=== PATIENT | female | born 1980 | race Caucasian/White ===

== ENCOUNTER 2023-03-15 10:23 | Emergency (ER) | payer MEDICAID ==
[~2023-03-15] VITALS: Ht 162 cm; Wt 60.0 kg
[2023-03-15 11:09] LABS: BASOPHILS # (AUTO) 0.1 10^3/uL (0.0-0.1); BASOPHILS % (AUTO) 1 % (0-10); EOSINOPHILS # (AUTO) 0.1 10^3/uL (0.0-0.3); EOSINOPHILS % (AUTO) 1 % (0-10); HEMATOCRIT 45 % (35-52); HEMOGLOBIN 15.7 g/dL (11.5-16.0); LYMPHOCYTES # (AUTO) 2.8 10^3/uL (1.0-4.0); LYMPHOCYTES % (AUTO) 29 % (12-44); MEAN CORPUSCULAR HEMOGLOBIN 34 pg (25-34); MEAN CORPUSCULAR HGB CONC 35 g/dL (32-36); MEAN CORPUSCULAR VOLUME 97 fL (80-99); MEAN PLATELET VOLUME 11.3 fL (9.0-12.2); MONOCYTES # (AUTO) 0.6 10^3/uL (0.0-1.0); MONOCYTES % (AUTO) 6 % (0-12); NEUTROPHILS # (AUTO) 6.1 10^3/uL (1.8-7.8); NEUTROPHILS % (AUTO) 63 % (42-75); PLATELET COUNT 240 10^3/uL (130-400); WHITE BLOOD COUNT 9.8 10^3/uL (4.3-11.0)
[2023-03-15 11:14] LABS: PROTHROMBIN TIME PATIENT 13.4 SEC (12.2-14.7)
[2023-03-15 11:15] LABS: ALBUMIN 3.7 GM/DL (3.2-4.5); CHLORIDE 112 MMOL/L (98-107); POTASSIUM 3.9 MMOL/L (3.6-5.0); SODIUM 141 MMOL/L (135-145)
[2023-03-15 11:16] LABS: CALCIUM 8.5 MG/DL (8.5-10.1)
[2023-03-15 11:17] LABS: GLUCOSE 97 MG/DL (70-105); TOTAL PROTEIN 6.3 GM/DL (6.4-8.2)
--- NOTE | 2023-03-15 11:18 | Diagnostic Imaging Report ---
EXAMINATION: Chest 1 view HISTORY: Chest pain COMPARISON: None available. FINDINGS: Heart size and pulmonary vasculature are normal. The lungs are clear without consolidation, pleural effusion, or pneumothorax. The osseous structures are intact. IMPRESSION: 1. No acute radiographic abnormality in the chest. Dictated by: Dictated on workstation # [id number]
[2023-03-15 11:19] LABS: BILIRUBIN,TOTAL 0.2 MG/DL (0.1-1.0); CARBON DIOXIDE 20 MMOL/L (21-32)
[2023-03-15 11:21] LABS: ALKALINE PHOSPHATASE 71 U/L (40-136); CREATININE SERUM 0.79 MG/DL (0.60-1.30); GFR ESTIMATED 97
[2023-03-15 11:22] LABS: BUN/CREATININE RATIO 8
[2023-03-15 11:24] LABS: ALANINE AMINOTRANSFERASE 29 U/L (0-55); MAGNESIUM 1.6 MG/DL (1.6-2.4)
[2023-03-15 11:25] LABS: LIPASE 49 U/L (8-78)
[2023-03-15] MEDS ORDERED: FAMOTIDINE 20 MG (PEPCID) TABLET PO STA (11:42)
--- NOTE | 2023-03-15 11:42 | ED Chest Pain ---
General Chief Complaint: Chest Pain Stated Complaint: SOB | LIGHTHEADED Nursing Triage Note: ARRIVED VIA AMB TO ROOM 06 WITH COMPLAINTS OF CHEST/HEAD PAIN THAT STARTED AT APPX 0910 THIS AM WHILE S/O WAS HAVING TESTS DONE. Source: patient, family Exam Limitations: no limitations History of Present Illness Date Seen by Provider: Mar 15, 2023 Time Seen by Provider: 10:24 Initial Comments 42-year-old female with no pertinent past medical history coming in due to chest pain. She got in a dispute with her significant other, began having epigastric discomfort afterwards. Has never really had pain like this before. It was more sharp to her. Also not uncommon for her to get headaches since she developed 1 earlier. Denies any prior history of DVT or PE, no lower extremity swelling or pain, no hemoptysis, no recent surgery, no cardiac history. Pain has improved since being here. Allergies and Home Medications Allergies Coded Allergies: prochlorperazine (Verified Allergy, Unknown, 03/15/23) promethazine (Verified Allergy, Unknown, 03/15/23) Patient Home Medication List Home Medication List Reviewed: Yes Review of Systems Review of Systems Constitutional: No fever EENTM: No Symptoms Reported Respiratory: No Symptoms Reported Cardiovascular: See HPI Gastrointestinal: No Symptoms Reported Genitourinary: No Symptoms Reported Musculoskeletal: no symptoms reported Skin: no symptoms reported Psychiatric/Neurological: See HPI Past Uzgcfkn-Lipdey-Ntkfsp Hx Patient Social History Tobacco Use?: Yes Substance use?: Yes Substance type: Marijuana Alcohol Use?: Yes Physical Exam Vital Signs Vital Signs - First Documented 03/15/23 10:25 Temp 35.8 Pulse 88 Resp 16 B/P (MAP) 140/110 (120) Pulse Ox 100 O2 Delivery Room Air Capillary Refill : Less Than 3 Seconds Height, Weight, BMI Height: '" Weight: lbs. oz. kg; 22.00 BMI Method: General Appearance: No Apparent Distress, WD/WN HEENT: PERRL/EOMI, Normal ENT Inspection, Pharynx Normal Neck: Full Range of Motion, Normal Inspection, Non Tender, Supple Respiratory: Chest Non Tender, Lungs Clear, Normal Breath Sounds, No Accessory Muscle Use, No Respiratory Distress Cardiovascular: Regular Rate, Rhythm, No Edema, Normal Peripheral Pulses Gastrointestinal: Normal Bowel Sounds, Non Tender, Soft; No Distended, No Guarding Extremity: Normal Capillary Refill, Normal Inspection, Normal Range of Motion, Non Tender, No Calf Tenderness, No Pedal Edema Neurologic/Psychiatric: Alert, No Motor/Sensory Deficits, Normal Mood/Affect Skin: Normal Color, Warm/Dry Progress/Results/Core Measures Results/Orders Lab Results Laboratory Tests Test 03/15/23 10:55 Range/Units White Blood Count 9.8 4.3-11.0 10^3/uL Red Blood Count 4.64 3.80-5.11 10^6/uL Hemoglobin 15.7 11.5-16.0 g/dL Hematocrit 45 35-52 % Mean Corpuscular Volume 97 80-99 fL Mean Corpuscular Hemoglobin 34 25-34 pg Mean Corpuscular Hemoglobin Concent 35 32-36 g/dL Red Cell Distribution Width 14.3 10.0-14.5 % Platelet Count 240 130-400 10^3/uL Mean Platelet Volume 11.3 9.0-12.2 fL Immature Granulocyte % (Auto) 0 % Neutrophils (%) (Auto) 63 42-75 % Lymphocytes (%) (Auto) 29 12-44 % Monocytes (%) (Auto) 6 0-12 % Eosinophils (%) (Auto) 1 0-10 % Basophils (%) (Auto) 1 0-10 % Neutrophils # (Auto) 6.1 1.8-7.8 10^3/uL Lymphocytes # (Auto) 2.8 1.0-4.0 10^3/uL Monocytes # (Auto) 0.6 0.0-1.0 10^3/uL Eosinophils # (Auto) 0.1 0.0-0.3 10^3/uL Basophils # (Auto) 0.1 0.0-0.1 10^3/uL Immature Granulocyte # (Auto) 0.0 0.0-0.1 10^3/uL Prothrombin Time 13.4 12.2-14.7 SEC INR Comment 1.0 0.8-1.4 Activated Partial Thromboplast Time 30 24-35 SEC Sodium Level 141 135-145 MMOL/L Potassium Level 3.9 3.6-5.0 MMOL/L Chloride Level 112 H 98-107 MMOL/L Carbon Dioxide Level 20 L 21-32 MMOL/L Anion Gap 9 5-14 MMOL/L Blood Urea Nitrogen 6 L 7-18 MG/DL Creatinine 0.79 0.60-1.30 MG/DL Estimat Glomerular Filtration Rate 97 BUN/Creatinine Ratio 8 Glucose Level 97 70-105 MG/DL Calcium Level 8.5 8.5-10.1 MG/DL Corrected Calcium 8.7 8.5-10.1 MG/DL Magnesium Level 1.6 1.6-2.4 MG/DL Total Bilirubin 0.2 0.1-1.0 MG/DL Aspartate Amino Transf (AST/SGOT) 28 5-34 U/L Alanine Aminotransferase (ALT/SGPT) 29 0-55 U/L Alkaline Phosphatase 71 40-136 U/L Troponin I < 0.028 <0.028 NG/ML B-Type Natriuretic Peptide < 10.0 <100.0 PG/ML Total Protein 6.3 L 6.4-8.2 GM/DL Albumin 3.7 3.2-4.5 GM/DL Lipase 49 8-78 U/L My Orders Orders - ANKIT PABLO MD Ekg Tracing (03/15/23 10:34) Cbc With Automated Diff (03/15/23 10:45) Magnesium (03/15/23 10:45) Chest 1 View, Ap/Pa Only (03/15/23 10:45) Ekg Tracing (03/15/23 10:45) Comprehensive Metabolic Panel (03/15/23 10:45) Protime With Inr (03/15/23 10:45) Partial Thromboplastin Time (03/15/23 10:45) O2 (03/15/23 10:45) Monitor-Rhythm Ecg Trace Only (03/15/23 10:45) Ed Iv/Invasive Line Start (03/15/23 10:45) Lipase (03/15/23 10:45) Bnp Geovanna (03/15/23 10:45) Troponin I Geovanna (03/15/23 10:45) Lidocaine 2% Viscous 15 Ml (Xylocaine Vi (03/15/23 11:45) Famotidine Tablet (Pepcid Tablet) (03/15/23 11:42) Antacid Suspension (Mylanta Suspension (03/15/23 11:45) Aspirin Chewable Tablet (Baby Aspirin Ch (03/15/23 11:45) Droperidol Inj (Ed Only) (Inapsine Inj ( (03/15/23 11:45) Medications Given in ED Current Medications Medications Dose Ordered Sig/Jolie Route Start Time Stop Time Status Last Admin Dose Admin Al Hydrox/Mg Hydrox/Simethicone 30 ml ONCE ONCE PO 03/15/23 11:45 03/15/23 11:46 DC 03/15/23 12:03 30 ML Aspirin 324 mg ONCE ONCE PO 03/15/23 11:45 03/15/23 11:46 DC 03/15/23 12:03 324 MG Droperidol 1.25 mg ONCE ONCE IV 03/15/23 11:45 03/15/23 11:46 DC 03/15/23 12:04 1.25 MG Lidocaine HCl 15 ml ONCE ONCE PO 03/15/23 11:45 03/15/23 11:46 DC 03/15/23 12:03 15 ML Vital Signs/I&O 03/15/23 10:25 Temp 35.8 Pulse 88 Resp 16 B/P (MAP) 140/110 (120) Pulse Ox 100 O2 Delivery Room Air Blood Pressure Mean: 120 Progress Progress Note : Progress Note 42-year-old female coming in due to chest pain after a dispute with her significant other. ABCs were intact, although stable on presentation. Physical exam reassuring with no acute abnormalities. EKG showing no acute ischemic changes on my interpretation. Chest x-ray ordered and interpreted by me showing no pneumothorax, normal cardiac silhouette, no obvious abnormalities. An IV was placed and basic labs were obtained and were significant for negative troponin, normal white blood cell count, normal creatinine, normal BNP. Symptoms not really consistent with ACS, and relatively lower in terms of risk factors with her age and past medical history. She is low risk for PE per [place] criteria and is PERC negative. She was given a GI cocktail as well as aspirin and for her headache she received droperidol since she is allergic to Compazine and Phenergan. On reassessment she was looking better and feels better. I believe she stable for discharge with outpatient follow-up with cardiology. She was sent home with strict return precautions. Initial ECG Impression Date: Mar 15, 2023 Initial ECG Impression Time: 10:37 Initial ECG Rate: 89 Initial ECG Rhythm: Normal Sinus Comment Narrow QRS, normal axis, no significant ST changes or T wave abnormalities Diagnostic Imaging Diagonstic Imaging: Xray (chest) Comments [facility] [place], [place] NAME: G[facility] KID[facility] REC#: [id number] PT STATUS: REG ER : 02/17/1975 PHYSICIAN: ANKIT PABLO MD ADMIT DATE: 03/15/23/ER Draft Date of Exam:03/15/23 CHEST 1 VIEW, AP/PA ONLY EXAMINATION: Chest 1 view HISTORY: syncope COMPARISON: None available. FINDINGS: Heart size and pulmonary vasculature are normal. The lungs are clear without consolidation, pleural effusion, or pneumothorax. The osseous structures are intact. Left-sided portacatheter is present. IMPRESSION: 1. No acute radiographic abnormality in the chest. Dictated on workstation # [id number] Dict: 03/15/23 1116 Trans: 03/15/23 1118 [facility] [id number] Interpreted by: ANTOINETTE EVANS DO Electronically signed by: Departure Impression Primary Impression: Chest pain Qualified Codes: R07.82 - Intercostal pain Disposition: 01 HOME, SELF-CARE Condition: Improved Departure-Patient Inst. Decision time for Depature: 12:35 Referrals: ДМИТРИЙ WILDER MD NO,LOCAL PHYSICIAN (PCP) Primary Care Physician Patient Instructions: Chest Pain (DC) Add. Discharge Instructions: We do not see any evidence of anything life-threatening at this time as cause of your chest pain. We do recommend following up with Dr. Wilder who is the collar worker. His number is in this paperwork. Work/School Note: Work Release Form Date Seen in the Emergency Department: Mar 15, 2023 Return to Work: Mar 16, 2023 Restrictions: No Restrictions ANKIT PABLO MD Mar 15, 2023 11:42
[2023-03-15] MEDS ORDERED: DROPERIDOL 5 MG/2 ML (INAPSINE) ED ONLY! IV ONE (11:45)
[2023-03-15] MEDS ORDERED: ANTACID SUSP 30 ML UDC (MYLANTA) PO ONE (11:45)
[2023-03-15] MEDS ORDERED: LIDOCAINE 2% VISCOUS 15 ML UDC PO ONE (11:45)
[2023-03-15] MEDS ORDERED: ASPIRIN 81 MG CHEW (CHILDREN'S ASA) PO ONE (11:45)
[2023-03-15 12:48] VITALS: BP 119/88
== END 2023-03-15 12:40 | disposition home or self-care (01) ==
LOC: ER 10:26
DX: R07.9 Chest pain, unspecified (principal)
CPT/HCPCS: 36415; 71045; 80053; 83690; 83735; 83880; 84484; 85025; 85610; 85730; 93005; 93041

== ENCOUNTER 2023-07-07 06:26 | Emergency (ER) | payer MEDICAID ==
[~2023-07-07] VITALS: Ht 162.6 cm; Wt 56.0 kg
[2023-07-07] MEDS ORDERED: fentaNYL INJECTION 100 MCG/2 ML VIAL IVP STA (06:38)
--- NOTE | 2023-07-07 06:43 | ED Abdominal Pain ---
General Stated Complaint: ABD PAIN Source of Information: Patient Exam Limitations: No Limitations History of Present Illness Date Seen by Provider: Jul 07, 2023 Time Seen by Provider: 06:30 Initial Comments 42-year-old female presents to the emergency department today for upper abdominal pain. Symptoms started at about 5:00 this morning and woke her from sleep. She has had pain like this with pancreatitis previously. She is a heavy drinker. When asked how much she drinks she states "too much." She does not really quantify it any further. She also uses illicit drugs regularly stating "what ever is on the table." She denies any fevers chills nausea or vomiting. Pain is described as constant, sharp stabbing in her bilateral upper abdomen without radiation. No aggravating or alleviating factors. She believes she might have a urinary tract infection because her urine is dark. She denies dysuria or hematuria. She is currently on her menstrual cycle and denies any vaginal symptoms. She has no changes in her bowels. She has had a tubal ligation but no other intra-abdominal surgeries. All other systems reviewed and negative except documented per HPI. Voice recognition software was used to help create this chart Allergies and Home Medications Allergies Coded Allergies: prochlorperazine (Verified Allergy, Unknown, 03/15/23) promethazine (Verified Allergy, Unknown, 03/15/23) Patient Home Medication List Home Medication List Reviewed: Yes Review of Systems Review of Systems Constitutional: see HPI Past Imzgqkw-Rtmzxv-Lzmyvs Hx Patient Social History Tobacco Use?: Yes Use of E-Cig and/or Vaping dev: No Substance use?: Yes Alcohol Use?: Yes Physical Exam Vital Signs Vital Signs - First Documented 07/07/23 06:43 Temp 36.5 Pulse 100 Resp 18 B/P (MAP) 143/112 (122) Capillary Refill : Height/Weight/BMI Height: '" Weight: lbs. oz. kg; 22.00 BMI Method: General Appearance: WD/WN, moderate distress (Appears to be in pain) HEENT: normal ENT inspection, pharynx normal Neck: non-tender, supple, normal inspection Respiratory: chest non-tender, lungs clear, normal breath sounds, no respiratory distress, no accessory muscle use Cardiovascular: regular rate, rhythm, no murmur Gastrointestinal: normal bowel sounds, soft, no organomegaly, tenderness (Diffuse tenderness to the bilateral upper abdomen with voluntary guarding. No rebound tenderness. No mass organomegaly. No skin changes.) Extremities: non-tender, normal inspection, normal capillary refill Neurologic/Psychiatric: alert, oriented x 3 Skin: normal color, warm/dry Progress/Results/Core Measures Results/Orders Lab Results Laboratory Tests Test 07/07/23 06:40 07/07/23 06:50 Range/Units White Blood Count 9.6 4.3-11.0 10^3/uL Red Blood Count 4.98 3.80-5.11 10^6/uL Hemoglobin 17.0 H 11.5-16.0 g/dL Hematocrit 48 35-52 % Mean Corpuscular Volume 96 80-99 fL Mean Corpuscular Hemoglobin 34 25-34 pg Mean Corpuscular Hemoglobin Concent 35 32-36 g/dL Red Cell Distribution Width 13.3 10.0-14.5 % Platelet Count 235 130-400 10^3/uL Mean Platelet Volume 10.3 9.0-12.2 fL Immature Granulocyte % (Auto) 0 % Neutrophils (%) (Auto) 69 42-75 % Lymphocytes (%) (Auto) 23 12-44 % Monocytes (%) (Auto) 6 0-12 % Eosinophils (%) (Auto) 1 0-10 % Basophils (%) (Auto) 1 0-10 % Neutrophils # (Auto) 6.7 1.8-7.8 10^3/uL Lymphocytes # (Auto) 2.2 1.0-4.0 10^3/uL Monocytes # (Auto) 0.5 0.0-1.0 10^3/uL Eosinophils # (Auto) 0.1 0.0-0.3 10^3/uL Basophils # (Auto) 0.1 0.0-0.1 10^3/uL Immature Granulocyte # (Auto) 0.0 0.0-0.1 10^3/uL Sodium Level 141 135-145 MMOL/L Potassium Level 3.3 L 3.6-5.0 MMOL/L Chloride Level 102 98-107 MMOL/L Carbon Dioxide Level 21 21-32 MMOL/L Anion Gap 18 H 5-14 MMOL/L Blood Urea Nitrogen 6 L 7-18 MG/DL Creatinine 0.79 0.60-1.30 MG/DL Estimat Glomerular Filtration Rate 97 BUN/Creatinine Ratio 8 Glucose Level 104 70-105 MG/DL Calcium Level 9.0 8.5-10.1 MG/DL Corrected Calcium 8.7 8.5-10.1 MG/DL Total Bilirubin 0.6 0.1-1.0 MG/DL Aspartate Amino Transf (AST/SGOT) 32 5-34 U/L Alanine Aminotransferase (ALT/SGPT) 21 0-55 U/L Alkaline Phosphatase 116 40-136 U/L Total Protein 7.9 6.4-8.2 GM/DL Albumin 4.4 3.2-4.5 GM/DL Lipase 47 8-78 U/L Urine Color ORANGE Urine Clarity CLOUDY Urine pH 6.0 5-9 Urine Specific [place] 1.020 1.016-1.022 Urine Protein 2+ H NEGATIVE Urine Glucose (UA) NEGATIVE NEGATIVE Urine Ketones 1+ H NEGATIVE Urine Nitrite NEGATIVE NEGATIVE Urine Bilirubin 1+ H NEGATIVE Urine Urobilinogen 1.0 < = 1.0 MG/DL Urine Leukocyte Esterase NEGATIVE NEGATIVE Urine RBC (Auto) 3+ H NEGATIVE Urine RBC 2-5 H /HPF Urine WBC 5-10 H /HPF Urine Squamous Epithelial Cells 5-10 /HPF Urine Crystals PRESENT H /LPF Urine Amorphous Sediment LARGE TARIK URATES H /LPF Urine Bacteria MODERATE H /HPF Urine Casts NONE /LPF Urine Mucus NEGATIVE /LPF Urine Culture Indicated YES My Orders Orders - DON NORMAN DO Comprehensive Metabolic Panel (07/07/23 06:38) Cbc And Automated Diff (07/07/23 06:38) Lipase (07/07/23 06:38) Ua Culture If Indicated (07/07/23 06:38) Urine Bedside (07/07/23 06:38) Ct Abdomen/Pelvis W (07/07/23 06:38) Ns Iv 1000 Ml (Ns Iv 1000 Ml) (07/07/23 06:45) Ketorolac Injection (Ketorolac Injection (07/07/23 06:45) Fentanyl Injection (Fentanyl Injection (07/07/23 06:38) Urine Culture (07/07/23 06:50) Iohexol Injection (Omnipaque 350 Mg/Ml 1 (07/07/23 07:30) Received Contrast (Hold Metformin- Contr (07/07/23 07:30) Ns (Ivpb) 100 Ml (Sodium Chloride 0.9% 1 (07/07/23 07:30) Medications Given in ED Current Medications Medications Dose Ordered Sig/Jolie Route Start Time Stop Time Status Last Admin Dose Admin Iohexol 100 ml ONCE ONCE IV 07/07/23 07:30 07/07/23 07:31 UNV 07/07/23 07:22 65 ML Ketorolac Tromethamine 15 mg ONCE ONCE IVP 07/07/23 06:45 07/07/23 06:46 DC 07/07/23 06:46 15 MG Sodium Chloride 100 ml ONCE ONCE IV 07/07/23 07:30 07/07/23 07:31 UNV 07/07/23 07:23 80 ML Vital Signs/I&O 07/07/23 06:43 Temp 36.5 Pulse 100 Resp 18 B/P (MAP) 143/112 (122) Departure Communication (Admissions) Patient is hemodynamically stable with a nonsurgical abdominal exam. She has significant tenderness palpation in her epigastric region and she has had in the past with chronic pancreatitis. There is no evidence for acute pancreatitis. CT scan is limited by motion artifact, but there is no obvious evidence for acute intra-abdominal pathology. I have independently reviewed the images. Labs are reassuring, lipase is normal normal bicarb. She is given IV fluids, IV Toradol and fentanyl and her symptoms have improved. She be discharged with p.o. Toradol and otherwise stable condition. Impression Primary Impression: Epigastric abdominal pain Disposition: HOME, SELF-CARE Condition: Stable Departure-Patient Inst. Referrals: NO,LOCAL PHYSICIAN (PCP/Family) Primary Care Physician Patient Instructions: Abdominal Pain, Adult ED Add. Discharge Instructions: No emergent medical conditions are identified for your symptoms today. This may be from your pancreas, chronic pancreatitis however there is no evidence for acute pancreatitis at this time. Take the Toradol as prescribed as needed. Increase your fluids at home. Refrain from drinking alcohol. Return to the emergency department for any severe concerns. Follow-up with your primary doctor for any nonemergent needs. Scripts Ketorolac Tromethamine (Ketorolac Tromethamine) 10 Mg Tablet 10 MG PO TID for Pain for 3 Days, #9 TAB Prov: DON ONRMAN DO 07/07/23 DON NORMAN DO Jul 07, 2023 06:43
[2023-07-07] MEDS ORDERED: KETOROLAC INJ 15 MG/ML VIAL IVP ONE (06:45)
[2023-07-07] MEDS ORDERED: NS IV 1000 ML 1,000 ML IV SCH (06:45)
[2023-07-07 06:46] LABS: BASOPHILS # (AUTO) 0.1 10^3/uL (0.0-0.1); BASOPHILS % (AUTO) 1 % (0-10); EOSINOPHILS # (AUTO) 0.1 10^3/uL (0.0-0.3); EOSINOPHILS % (AUTO) 1 % (0-10); HEMATOCRIT 48 % (35-52); LYMPHOCYTES # (AUTO) 2.2 10^3/uL (1.0-4.0); LYMPHOCYTES % (AUTO) 23 % (12-44); MEAN CORPUSCULAR HEMOGLOBIN 34 pg (25-34); MEAN CORPUSCULAR HGB CONC 35 g/dL (32-36); MEAN CORPUSCULAR VOLUME 96 fL (80-99); MEAN PLATELET VOLUME 10.3 fL (9.0-12.2); MONOCYTES # (AUTO) 0.5 10^3/uL (0.0-1.0); MONOCYTES % (AUTO) 6 % (0-12); NEUTROPHILS # (AUTO) 6.7 10^3/uL (1.8-7.8); NEUTROPHILS % (AUTO) 69 % (42-75); PLATELET COUNT 235 10^3/uL (130-400); WHITE BLOOD COUNT 9.6 10^3/uL (4.3-11.0)
[2023-07-07 06:54] LABS: ALBUMIN 4.4 GM/DL (3.2-4.5); POTASSIUM 3.3 MMOL/L (3.6-5.0)
[2023-07-07 06:56] LABS: TOTAL PROTEIN 7.9 GM/DL (6.4-8.2)
[2023-07-07 06:58] LABS: BILIRUBIN,TOTAL 0.6 MG/DL (0.1-1.0)
[2023-07-07 07:00] LABS: CREATININE SERUM 0.79 MG/DL (0.60-1.30)
[2023-07-07 07:05] LABS: BACTERIA,URINE MODERATE /HPF; BILIRUBIN,URINE 1+ (NEGATIVE); CLARITY,URINE CLOUDY; COLOR,URINE ORANGE; GLUCOSE, URINE (UA) NEGATIVE (NEGATIVE); KETONES,URINE 1+ (NEGATIVE); LEUKOCYTE ESTERASE ,URINE NEGATIVE (NEGATIVE); NITRITE,URINE NEGATIVE (NEGATIVE); PROTEIN,URINE 2+ (NEGATIVE)
[2023-07-07 07:06] LABS: AMORPHOUS SEDIMENT,UR LARGE AMOR URATES /LPF
[2023-07-07] MEDS ORDERED: KETO10TA PO (07:26)
[2023-07-07] MEDS ORDERED: HOLD METFORMIN - RECEIVED CONTRAST 20 ML VIAL IV SCH (07:30)
[2023-07-07] MEDS ORDERED: IOHEXOL 350 MG/ML 100 ML (OMNIPAQUE 350) VIAL IV ONE (07:30)
[2023-07-07] MEDS ORDERED: NS 100 ML (IVPB) BAG IV ONE (07:30)
--- NOTE | 2023-07-07 07:48 | Diagnostic Imaging Report ---
PROCEDURE: CT abdomen and pelvis with contrast. TECHNIQUE: Multiple contiguous axial images were obtained through the abdomen and pelvis after administration of intravenous contrast. Auto Exposure Controls were utilized during the CT exam to meet ALARA standards for radiation dose reduction. All CT scans use one or more of the following dose optimizing techniques: automated exposure control, MA and/or KvP adjustment based on patient size and exam type or iterative reconstruction. INDICATION: Upper abdominal pain. I have no priors. FINDINGS: Liver density is in keeping with a fatty infiltration and there is mild hepatomegaly. No radiodense gallstone. No bile duct dilatation. The spleen, adrenals and pancreas unremarkable. The kidneys are unobstructed, nonfocal and nonacute. There is no ileus or bowel obstruction. No pneumatosis or free gas. No perienteric or pericolonic edema or stranding. The air-containing normal appendix is visible. There are a few noninflamed diverticula of the sigmoid colon. There is a right adnexal cyst presumed ovarian 2.4 cm likely the dominant follicle. The uterus unremarkable. Urinary bladder was nearly empty, grossly unremarkable. No free fluid. No fluid collection. No free air. IMPRESSION: Mild fatty hepatomegaly and likely physiologic right ovarian cyst. No acute-appearing abnormality. Dictated by: Dictated on workstation # [id number]
[2023-07-07 07:57] VITALS: BP 145/94
== END 2023-07-07 07:57 | disposition home or self-care (01) ==
LOC: EDUNIT# 06:26 → ER 06:28
DX: R10.13 Epigastric pain (principal); Z87.19 Personal history of other diseases of the digestive system
CPT/HCPCS: 36415; 74177; 80053; 81000; 83690; 84703; 85025; 87088

== ENCOUNTER 2023-07-09 14:39 | Emergency (ER) | payer MEDICAID ==
[~2023-07-09 14:39] MED LIST: KETO10TA PO
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
[2023-07-09] MEDS ORDERED: ONDANSETRON INJECTION 4 MG/2 ML (SDV) IVP ONE (15:00)
[2023-07-09] MEDS ORDERED: fentaNYL INJECTION 100 MCG/2 ML VIAL IVP ONE (15:00)
[2023-07-09 15:07] LABS: BASOPHILS # (AUTO) 0.1 10^3/uL (0.0-0.1); BASOPHILS % (AUTO) 1 % (0-10); EOSINOPHILS # (AUTO) 0.2 10^3/uL (0.0-0.3); EOSINOPHILS % (AUTO) 3 % (0-10); HEMATOCRIT 46 % (35-52); LYMPHOCYTES # (AUTO) 2.5 10^3/uL (1.0-4.0); LYMPHOCYTES % (AUTO) 37 % (12-44); MEAN CORPUSCULAR HEMOGLOBIN 34 pg (25-34); MEAN CORPUSCULAR HGB CONC 35 g/dL (32-36); MEAN CORPUSCULAR VOLUME 96 fL (80-99); MEAN PLATELET VOLUME 10.8 fL (9.0-12.2); MONOCYTES # (AUTO) 0.5 10^3/uL (0.0-1.0); MONOCYTES % (AUTO) 8 % (0-12); NEUTROPHILS # (AUTO) 3.3 10^3/uL (1.8-7.8); NEUTROPHILS % (AUTO) 50 % (42-75); PLATELET COUNT 200 10^3/uL (130-400); WHITE BLOOD COUNT 6.7 10^3/uL (4.3-11.0)
[2023-07-09 15:11] LABS: ALBUMIN 4.3 GM/DL (3.2-4.5)
[2023-07-09 15:12] LABS: POTASSIUM 3.4 MMOL/L (3.6-5.0)
[2023-07-09 15:13] LABS: CALCIUM 9.3 MG/DL (8.5-10.1)
[2023-07-09 15:14] LABS: TOTAL PROTEIN 7.8 GM/DL (6.4-8.2)
[2023-07-09 15:16] LABS: BILIRUBIN,TOTAL 0.4 MG/DL (0.1-1.0)
[2023-07-09 15:18] LABS: CREATININE SERUM 0.8 MG/DL (0.60-1.30)
[2023-07-09] MEDS ORDERED: LIDOCAINE 1% INJ 10 ML VIAL ONE (15:29)
[2023-07-09] MEDS ORDERED: metroNIDAZOLE 500 MG TABLET PO ONE (15:30)
[2023-07-09] MEDS ORDERED: cefTRIAXone 500 MG VIAL IV/IM IM ONE (15:30)
[2023-07-09] MEDS ORDERED: LIDOCAINE 1% INJ 20 ML VIAL INJ ONE (15:30)
[2023-07-09 15:32] LABS: PROTHROMBIN TIME PATIENT 13.1 SEC (12.2-14.7)
[2023-07-09 15:34] LABS: BILIRUBIN,URINE NEGATIVE (NEGATIVE); CLARITY,URINE SL CLOUDY; COLOR,URINE YELLOW; GLUCOSE, URINE (UA) NEGATIVE (NEGATIVE); KETONES,URINE NEGATIVE (NEGATIVE); NITRITE,URINE NEGATIVE (NEGATIVE); PROTEIN,URINE NEGATIVE (NEGATIVE)
[2023-07-09 15:35] LABS: BACTERIA,URINE FEW /HPF; LEUKOCYTE ESTERASE ,URINE TRACE (NEGATIVE); RBC,URINE 0-2 /HPF
[2023-07-09] MEDS ORDERED: METR-145 PO (16:07)
[2023-07-09] MEDS ORDERED: DOXY100T2 PO (16:07)
[2023-07-09 16:17] VITALS: BP 156/101
== END 2023-07-09 16:17 | disposition home or self-care (01) ==
LOC: EDUNIT# 14:39 → ER 14:41
DX: N73.9 Female pelvic inflammatory disease, unspecified (principal); F17.210 Nicotine dependence, cigarettes, uncomplicated
CPT/HCPCS: 36415; 80053; 81000; 84703; 85025; 85610; 85730; 87210; 87491; 87591